=== PATIENT | male | born 1945 | race Caucasian/White ===

== ENCOUNTER → 2017-04-17 | Outpatient (CLI) | payer MEDICARE ==
[~2017-04-17] MED LIST: ASPIRIN LO-DOSE81 MG PO; CARISOPRODOL350 MG PO; COREG25 MG PO; COZAAR50 MG PO; DESYREL100 MG PO; FLONASE 50 MCG/16 GM NOSE; GLUCOPHAGE XR750 M1 PO; NORCO 5-325 TA1 EACH PO; NORCO 7.5-3251 EACH PO; PLAVIX75 MG PO; SIMVASTATIN80 MG PO; TORADOL10 MG PO
== END | disposition disaster alternative care site (69) ==
LOC: LENT 17:07
DX: R22.0 Localized swelling, mass and lump, head (principal)

== ENCOUNTER → 2017-05-04 | Day surgery (SDC) | payer MEDICARE ==
[~2017-05-04] VITALS: Ht 177.8 cm; Wt 103.2 kg
--- NOTE | ~2017-05-04 | OR ---
PATIENT'S NAME: INEZ DAMON [facility] AGE: 71 Y [address] ROOM: [place] [id number] [place] [facility] [place]: 05/04/[place] OR/Procedure Report DISCHARGE DATE: FAMILY PHYSICIAN: Henri Pena MD ATTENDING PHYSICIAN: Monica Rios V SURGEON: Monica Rios MD PAINT LINE OPERATOR: DATE OF PROCEDURE: 05/04/2017 PREOPERATIVE DIAGNOSIS: Left occipital mass. POSTOPERATIVE DIAGNOSIS: Left occipital mass. OPERATION/PROCEDURE: Excision of 5 x 3 cm left subcutaneous occipital mass. ANESTHESIA: General endotracheal anesthesia. ESTIMATED BLOOD LOSS: Minimal. COMPLICATIONS: None. DESCRIPTION OF PROCEDURE: The patient was taken to the operating room, laid in supine position. Head was rotated to the right and the patient was placed in right lateral decubitus position. The hair was shaved within the left posterior occiput. The patient had a scar as well as a palpable soft tissue mass likely consistent with residual lipoma. The proposed incision line was marked, infiltrated with 2% lidocaine with epinephrine solution. The scalp was prepped and draped in usual sterile fashion using chlorhexidine. Approximately 5 x 1.5 cm elliptical skin incision was performed surrounding previous left occipital scar. Subcutaneous tissues were divided using #15 blade. Subcutaneous tissues were circumferentially down to the musculature. Dissection was performed along the fascia at the occiput. The specimen was removed in total and measured approximately 5 x 3 cm. The wound was irrigated with copious amounts of bacitracin solution. Hemostasis was noted be adequate. The subcutaneous tissues were approximated with interrupted 4-0 Vicryl suture. Skin closure was performed with a running interlocking 5-0 Ethilon. The patient tolerated the procedure well, was aroused, and discharged from the operating room to recovery room in satisfactory condition. MONICA RIOS MD PATIENT'S NAME: INEZ DAMON [facility] AGE: 71 Y [address] ROOM: [place] [address] [place] [facility] [place]: 05/04/2017 OR/Procedure Report DISCHARGE DATE: FAMILY PHYSICIAN: Henri Pena MD ATTENDING PHYSICIAN: Monica Rios V TVC/modl /[id number] d: 05/04/17 1430 t: 05/07/17 1309, OPERATIVE SUMMARY
[2017-05-04 08:32] LABS: INR - (THERAPEUTIC) 1.02 (0.92-1.07); PROTIME 10.7 SECONDS (9.8-11.4)
== END | disposition disaster alternative care site (69) ==
LOC: GPOC 04-28 10:00 → GSDC 07:00
PROVIDERS: Otolaryngology
PROC: 0JB00ZZ Excision of Scalp Subcutaneous Tissue and Fascia, Open Approach (ICD-10-PCS; principal; 2017-05-04)
DX: D17.0 Benign lipomatous neoplasm of skin and subcutaneous tissue of head, face and neck (principal); M19.90 Unspecified osteoarthritis, unspecified site; E11.9 Type 2 diabetes mellitus without complications; I25.10 Atherosclerotic heart disease of native coronary artery without angina pectoris; I10 Essential (primary) hypertension; E78.00 Pure hypercholesterolemia, unspecified; I50.9 Heart failure, unspecified; I25.2 Old myocardial infarction; Z95.1 Presence of aortocoronary bypass graft; Z96.612 Presence of left artificial shoulder joint; Z96.611 Presence of right artificial shoulder joint; Z98.890 Other specified postprocedural states; Z79.899 Other long term (current) drug therapy; Z79.82 Long term (current) use of aspirin; Z88.8 Allergy status to other drugs, medicaments and biological substances; Z91.013 Allergy to seafood
CPT/HCPCS: J0171; J0360; J2001; J2250; J2405; J7030